=== PATIENT | male | born 1995 | race Caucasian/White ===

== ENCOUNTER 2017-11-21 12:35 | Emergency (ER) | payer OTHER ==
[2017-11-21 12:41] VITALS: BP 145/56; PULSE 100; RESP 18; TEMP 98; O2SAT 97
[2017-11-21] MEDS ORDERED: LET GEL TOPICAL 1 EA SYR TP ONE (12:43)
[2017-11-21] MEDS ORDERED: SKIN ADHESIVE (DERMABOND) 1 EACH TP ONE (13:31)
--- NOTE | 2017-11-21 14:01 | EDPHY ---
H & P HPI/ROS: CHIEF COMPLAINT: Laceration History by patient HISTORY OF PRESENT ILLNESS: 22-year-old otherwise healthy man presents complaining of laceration to right he tip of index finger after the picture he was cleaning had the glass slide out of it and sliced his finger tip. Patient' s tetanus immunization is up-to-date. He denies any other pain or injury. REVIEW OF SYSTEMS: As in HPI, and all other systems reviewed and are negative Smoking Status: Never smoked Physical Exam: General Appearance: Alert and no distress. Eyes: Pupils equal and round no injection. Musculoskeletal: Neck is supple and nontender. Extremities: Positive 1 cm tissue defect with thin flap at tip of right index finger, full range of motion of all the joints of the finger, distal sensation intact. Skin: No rashes or lesions except as described above. Constitutional: Initial Vital Signs Temperature (C) 36.6 C 11/21/17 12:40 Heart Rate 100 11/21/17 12:40 Respiratory Rate 18 11/21/17 12:40 Blood Pressure 145/56 H 11/21/17 12:40 O2 Sat (%) 97 11/21/17 12:40 O2 Delivery Mode Room Air Allergies/Adverse Reactions: No Known Allergies Allergy (Unverified 11/21/17 12:39) Home Medications: Medication Instructions Recorded NK [No Known Home Meds] 11/21/17 MDM/Departure - [facility] ED Course/Re-evaluation: Procedure: Laceration repair with skin glue. The 1 cm laceration on the distal right index finger with very thin nonsuturable flat. The wound was cleaned and explored to its base with a gloved finger. There were no deep structures involved. The wound was repaired with tissue adhesive by tacking down the flap with skin glue. The procedure was performed by myself. - Depart Disposition: Home, Routine, Self-Care Clinical Impression: Laceration Condition: Good Instructions: Skin Adhesive Care (ED) Additional Instructions: You were seen by Dr. Salina Henley today. We closed your wound with skin glue. Please keep it dry for the next 24 hr and then no submersion for the next 7-10 days. Watch for signs and symptoms of infection including increased redness, increased pain or pus draining from the wound or fever. Return for any worsening or new concerns. Referrals: NONE *PRIMARY CARE P,. [Primary Care Provider] - As per Instructions
== END 2017-11-21 14:11 | disposition home or self-care (01) ==
LOC: CED 12:35
PROC: 0HQFXZZ Repair Right Hand Skin, External Approach (ICD-10-PCS; principal; 2017-11-21)
DX: S61.210A Laceration without foreign body of right index finger without damage to nail, initial encounter (principal); W25.XXXA Contact with sharp glass, initial encounter